=== PATIENT | female | born 1955 | race Caucasian/White ===

== ENCOUNTER → 2023-07-10 14:47 | Outpatient (REF) | payer MEDICARE, OTHER, SELFPAY | LOC: DHCBS MAIN 14:47 | PROVIDERS: ATTENDING PHYSICIAN Internal Medicine Cardiovascular Disease; FAMILY PHYSICIAN Student in an Organized Health Care Education/Training Program | DX: I71.9 Aortic aneurysm of unspecified site, without rupture (principal); Z98.890 Other specified postprocedural states | CPT/HCPCS: 93306 ==

== ENCOUNTER 2023-08-20 09:15 | Emergency (ER) | payer MEDICARE, OTHER, SELFPAY ==
[2023-08-20 09:25] VITALS: BP 128/78
--- NOTE | 2023-08-20 10:00 | ED.MUSCINJ ---
HPI-Injury
General
Chief Complaint: Musculo-Skeletal Complaint
Source: patient
Exam Limitations: none
Time Seen by Provider: 08/20/23 09:44
Travel History
Have you had any contact with someone who has COVID-19?: No
Do you have any symptoms of coronavirus? Fever > 100 degrees, chills, cough, shortness of breath, sore throat, loss of taste or smell, muscle aches, or headache?: No
History of Present Illness-Injury
Initial Injury comments:
68-year-old female presents complaining of left knee pain starting 2 days ago getting worse. No known injury. She notes swelling with pain behind her knee. The pain is made worse with bearing weight. She has been using a knee immobilizer from a
prior injury. No fevers rash or history of gout. No other complaints
Past History
Past History
ED Past Medical History: Arrthythmia and HTN
ED Past Surgical History: Gynecological (Breast cyst removal ) and Tonsilectomy
Social History
Tobacco: Non-smoker
Alcohol: None
Drug: None
Personal:
Living: with family
Employment: Retired (from [employer])
Family History
Family History: Other (n/c)
Phy Exam
Physical Exam
Physical Exam:
General: Well-appearing female no acute respiratory distress
HEENT: Normocephalic atraumatic
MSK: Left knee with small effusion. There is fullness in the popliteal space. She is tender over the posterior joint line and slightly over the calf. Able to straight leg raise against gravity flexion beyond 90 degrees no overlying skin changes
Vascular: Left leg is warm to the touch with good color
Injury Course
Orders/Labs/Results
Orders:
Orders
08/20/23 09:59
CR Knee - Left 4 Or More View* Urgent
Comment:
Reason For Exam: pain
Venous Doppler Lwr Ext Left [US Periph Venous LOWER Ext LT] Urgent
Comment:
Reason For Exam: pain behind knee, swelling
MDM/Problems Addressed
Differential Diagnosis Includes:
Atraumatic left knee pain. Consider strain versus sprain versus DJD versus DVT. Will obtain x-rays and ultrasound
*Critical Care Note
Total Time (30-74mins, 75-104mins- exclusive of procedures): Not Applicable
Update Note
Update Note:
No DVT On ultrasound x-ray shows minimal degenerative joint disease in the medial compartment. Recommended continued use of knee immobilizer. Will recommend follow-up with either family doctor or orthopedics for further evaluation of proximal
imaging of the knee.
ED Attending Note
-
Portions of this chart may have been created with voice recognition software.� Occasional wrong word or��sound alike� substitutions may have occurred due to the inherent limitations of voice recognition software.
Discharge Plan
Departure
Patient Disposition: Home (Routine Discharge)
Date of Disposition: 08/20/23
Time of Disposition: 12:54
Patient with high blood pressure during this ER visit?: No
Discharge Problem:
Acute pain of left knee
Instructions: Muscle and Bone Pain (DC)
Prescriptions:
No Action
cetirizine [Zyrtec] 10 mg Tablet
10 mg PO DAILY PRN (Reason: SEASONAL ALLERGIES)
atorvastatin 10 mg Tablet
10 mg PO DAILY
metoprolol succinate 25 mg Tablet Extended Release 24 Hr
25 mg PO HS
losartan 50 mg Tablet
50 mg PO DAILY
sennosides [senna] 8.6 mg Tablet
8.6 mg PO BID PRN (Reason: constipation)
acetaminophen [Tylenol] 325 mg Tablet
650 mg PO Q4HPRN PRN (Reason: mild pain)
therapeutic multivitamin Tablet
1 tab PO DAILY
calcium carbonate [Tums] 300 mg (750 mg) Tablet,Chewable
300 mg PO BIDPRN PRN (Reason: gerd)
aspirin 81 mg Tablet,Delayed Release (Dr/Ec)
81 mg PO DAILY
famotidine [Pepcid] 20 mg Tablet
20 mg PO DAILY
amiodarone 200 mg tablet
200 mg PO BID Qty: 60 0RF
furosemide 40 mg tablet
40 mg PO DAILY Qty: 30 1RF
furosemide 40 mg tablet
40 mg PO DAILY Qty: 30 1RF
Referrals:
Neema Brunson MD [Family Provider] -
Activity Restrictions/Additional Instructions:
Continue with Tylenol and if needed you may use ibuprofen for pain. Use brace for support ambulating. Follow-up with your doctor as planned
Interventions
Interventions:
ED-Musculoskeletal Assessment Last Done: 08/20/23 10:15
== END 2023-08-20 13:13 | disposition home or self-care (01) ==
LOC: EMR 09:15
PROVIDERS: EMERGENCY PHYSICIAN Emergency Medicine; FAMILY PHYSICIAN Student in an Organized Health Care Education/Training Program
DX: M25.562 Pain in left knee (principal); M17.12 Unilateral primary osteoarthritis, left knee
CPT/HCPCS: 99284; 73564; 93971

== ENCOUNTER → 2023-08-21 07:26 | Outpatient (REF) | payer MEDICARE, OTHER, SELFPAY | LOC: PAVMRI 07:26 | PROVIDERS: ATTENDING PHYSICIAN Student in an Organized Health Care Education/Training Program | DX: M25.562 Pain in left knee (principal); R26.89 Other abnormalities of gait and mobility | CPT/HCPCS: 73721 ==

== ENCOUNTER → 2023-11-04 13:28 | Outpatient (REF) | payer MEDICARE, OTHER, SELFPAY | LOC: RAD 13:28 | PROVIDERS: ATTENDING PHYSICIAN Internal Medicine Cardiovascular Disease; FAMILY PHYSICIAN Student in an Organized Health Care Education/Training Program | DX: I71.9 Aortic aneurysm of unspecified site, without rupture (principal); Z98.890 Other specified postprocedural states | CPT/HCPCS: 71275; Q9967 ==

== ENCOUNTER → 2023-12-26 11:28 | Outpatient (REF) | payer MEDICARE, OTHER, SELFPAY | LOC: RAD 11:28 | PROVIDERS: ATTENDING PHYSICIAN Student in an Organized Health Care Education/Training Program | DX: M25.511 Pain in right shoulder (principal); M25.512 Pain in left shoulder | CPT/HCPCS: 73030 ==

== ENCOUNTER → 2024-02-05 09:15 | Outpatient (REF) | payer MEDICARE, OTHER, SELFPAY | LOC: PAVMRI 09:15 | PROVIDERS: ATTENDING PHYSICIAN Student in an Organized Health Care Education/Training Program | DX: M25.512 Pain in left shoulder (principal) | CPT/HCPCS: 73221 ==

== ENCOUNTER → 2024-05-31 15:45 | Outpatient (REF) | payer MEDICARE, OTHER, SELFPAY | LOC: RAD 15:45 | PROVIDERS: ATTENDING PHYSICIAN Internal Medicine Gastroenterology; FAMILY PHYSICIAN Student in an Organized Health Care Education/Training Program | DX: R10.32 Left lower quadrant pain (principal) | CPT/HCPCS: 36415; 74177; 82565; 84520; Q9967 ==

== ENCOUNTER → 2024-06-08 09:43 | Outpatient (REF) | payer MEDICARE, OTHER, SELFPAY | LOC: HWWDC 09:43 | PROVIDERS: ATTENDING PHYSICIAN Obstetrics & Gynecology; FAMILY PHYSICIAN Student in an Organized Health Care Education/Training Program | DX: Z12.31 Encounter for screening mammogram for malignant neoplasm of breast (principal) | CPT/HCPCS: 77063; 77067 ==

== ENCOUNTER 2024-07-28 06:18 | Day surgery (SDC) | payer MEDICARE, OTHER, SELFPAY | END 2024-07-28 09:03 | disposition home or self-care (01) | LOC: GI 06:18 | PROVIDERS: ATTENDING PHYSICIAN Internal Medicine Gastroenterology | DX: Z12.11 Encounter for screening for malignant neoplasm of colon (principal); K63.5 Polyp of colon; K57.30 Diverticulosis of large intestine without perforation or abscess without bleeding; K64.0 First degree hemorrhoids | CPT/HCPCS: 45385; 88305 ==

== ENCOUNTER 2024-07-28 13:55 | Emergency (ER) | payer MEDICARE, OTHER, SELFPAY ==
[2024-07-28 13:58] VITALS: BP 156/91
[2024-07-28 14:22] LABS: % Basophils 0.6 % (0-2); % Eosinophils 1.4 % (0-6); % Immature Granulocytes 0.2 % (0-0.5); % Monocytes 11.2 % (1.7-9.3); % Neutrophils 48.6 % (42.2-75.2); Absolute Eosinophils 0.1 10^3/uL (0-0.7); Absolute Lymphocytes 1.9 10^3/uL (1.2-3.4); Absolute Monocytes 0.6 10^3/uL (0.1-0.6); Absolute Neutrophils 2.4 10^3/uL (1.4-6.5); Hematocrit 48.3 % (37.0-47.0); Mean Corp Hgb Conc. 33.1 g/dL (33.0-37.0); Mean Corpuscular Hgb 30.6 pg (27.0-31.0); Mean Corpuscular Volume 92.4 fL (81.0-99.0); Mean Platelet Volume 11.2 fL (7.4-10.4); Nucleated Red Blood Cells % 0 %; Platelet Count 167 10^3/uL (130-400); Red Blood Cell Count 5.23 10^6/uL (4.20-5.40); Red Cell Dist. Width 11.9 % (11.5-14.5); White Blood Cell Count 4.9 10^3/uL (4.8-10.8)
[2024-07-28 14:36] LABS: ALT (SGPT) 26 U/L (0-35); AST (SGOT) 32 U/L (14-36); Albumin 4.7 g/dl (3.5-5.0); Alkaline Phosphatase 66 U/L (38-126); Blood Urea Nitrogen 14 mg/dl (7-17); Calcium 9.6 mg/dl (8.4-10.2); Carbon Dioxide 26 mmol/L (22-30); Chloride 103 mmol/L (98-107); Glucose 107 mg/dl (70-99); Potassium 3.7 mmol/L (3.5-5.1); Sodium 138 mmol/L (135-145); Total Protein 7.5 g/dl (6.3-8.2); eGFR > 60.00
[2024-07-28 14:37] LABS: PT 12.7 Sec (11.4-14.6)
[2024-07-28 14:38] LABS: APTT 26.3 Sec (23.4-35.0)
--- NOTE | 2024-07-28 16:50 | ED.GENMED ---
History of Present Illness
General
Chief Complaint: Rectal Bleeding
Time Seen by Provider: 07/28/24 16:35
History of Present Illness
History of Present Illness:
Presents to the emergency department with bleeding. She had a screening colonoscopy this morning in a.m with Dr. Munguia. She had a 4mm polyp in the sigmoid colon that was biopsied. she denies any lightheaded/chest pain/sob
Past History
Past History
ED Past Medical History: Arrthythmia and HTN
ED Past Surgical History: Gynecological (Breast cyst removal ) and Tonsilectomy
Social History
Tobacco: Non-smoker
Alcohol: None
Drug: None
Personal:
Living: with family
Employment: Retired (from [employer])
Family History
Family History: Other (n/c)
Phy Exam
Physical Exam
Physical Exam:
GENERAL APPEARANCE: NAD, well developed/ well nourished
EYES lids/conjunctiva normal
EARS/NOSE/THROAT Mucous membranes moist, uvula midline without oral pharyngeal erythema, exudate or swelling
HEAD/NECK normocephalic atraumatic, neck is supple.
RESPIRATORY respiratory effort normal, speaks in full sentences, no accessory muscle use. Lungs clear to auscultation without rhonchi, wheezes, rales
CARDIAC Regular rate and rhythm, no edema.
ABDOMINAL Soft, ND/NT. Rectal exam with trace amount of bright red blood. No palpable hemorrhoids
MUSCLES/EXTREMITIES No abnormal range of motion, no swelling.
SKIN Warm, pink and dry. No rashes
NEUROLOGICAL Speech is clear and appropriate. Normal level of consciousness. 5/5 strength in all extremities.
PSYCH Normal mood and affect. Judgement/competence is appropriate
Course
Orders/Labs/Results
Orders:
Orders
07/28/24 14:10
Type And Crossmatch [Type+Screen] Urgent
Complete Blood Count/With Diff Urgent
Comprehensive Metabolic Panel Urgent
PTT Urgent
Prothrombin Time Urgent
07/28/24 14:35
ABO2 Urgent
BBK Wristband Number:
Associate notified that ABO2 has been ordered: [id number]
Date: 07/28/24
Time: 14:35
Mental Health Therapist ID: [id number]
Abnormal Lab Results
07/28/24
14:10
Hct 48.3 H %
(37.0-47.0)
MPV 11.2 H fL
(7.4-10.4)
Monocytes % 11.2 H %
(1.7-9.3)
Glucose 107 H mg/dl
(70-99)
07/28/24 14:10
07/28/24 14:10
Vital Signs
Initial and Last Documented VS:
Initial Vital Signs
Temp Pulse Resp BP Pulse Ox
97.5 F 103 20 156/91 99
07/28/24 13:58 07/28/24 13:58 07/28/24 13:58 07/28/24 13:58 07/28/24 13:58
Last Documented Vital Signs
Temp Pulse Resp BP Pulse Ox
97.5 F 103 20 156/91 99
07/28/24 13:58 07/28/24 13:58 07/28/24 13:58 07/28/24 13:58 07/28/24 13:58
*Critical Care Note
Total Time (30-74mins, 75-104mins- exclusive of procedures): Not Applicable
ED Attending Note
ED Attending Note
ED Attending Note:
d/w GI production control scheduler Dr. Selby
patient is hemodynamically stable
hgb is 16
will admit for observation
-
Portions of this chart may have been created with voice recognition software.� Occasional wrong word or��sound alike� substitutions may have occurred due to the inherent limitations of voice recognition software.
Discharge Plan
Departure
Prescriptions:
No Action
cetirizine [Zyrtec] 10 mg Tablet
10 mg PO DAILY PRN (Reason: SEASONAL ALLERGIES)
atorvastatin 10 mg Tablet
10 mg PO DAILY
metoprolol succinate 25 mg Tablet Extended Release 24 Hr
25 mg PO HS
losartan 50 mg Tablet
50 mg PO DAILY
sennosides [senna] 8.6 mg Tablet
8.6 mg PO BID PRN (Reason: constipation)
acetaminophen [Tylenol] 325 mg Tablet
650 mg PO Q4HPRN PRN (Reason: mild pain)
therapeutic multivitamin Tablet
1 tab PO DAILY
calcium carbonate [Tums] 300 mg (750 mg) Tablet,Chewable
300 mg PO BIDPRN PRN (Reason: gerd)
aspirin 81 mg Tablet,Delayed Release (Dr/Ec)
81 mg PO DAILY
famotidine [Pepcid] 20 mg Tablet
20 mg PO DAILY
amiodarone 200 mg tablet
200 mg PO BID Qty: 60 0RF
furosemide 40 mg tablet
40 mg PO DAILY Qty: 30 1RF
furosemide 40 mg tablet
40 mg PO DAILY Qty: 30 1RF
Interventions
Interventions:
*Risk Screen - Suicide Last Done: 07/28/24 13:58
Discharge Date and Time
Print Language: ARMENIAN
[2024-07-28 17:22] VITALS: BP 183/93; BMI 21.9
--- NOTE | 2024-07-28 17:22 | W.PN.UPDATE ---
Update Note
Progress Note Update
Patient seen and examined. I did the colonoscopy earlier today she did have a 4 mm polyp that was on a little bit of a possible stalk perhaps this was she was bleeding from versus hemorrhoids. She states her first bowel movement was just blood
when she wiped. The second 1 was about a fistful with clots but primarily when she wipes. She had a third bowel movement here in the emergency room which had less blood. Her hemoglobin here was 16. Dr. Pelaez and I discussed with the patient
options of going home and staying on a clear liquid diet, if no bleeding overnight can advance to regular diet versus staying in the observation unit. Patient opted to go home with a clear liquid diet and will come back if she has any chest pain,
shortness of breath, lightheadedness, dizziness, ongoing bleeding. I will follow-up with her tomorrow as well. Dr. Pelaez discussed with the ER doctor and I discussed with Dr. Jhaveri on-call.
--- NOTE | 2024-07-28 17:23 | ED.ADDNOTE ---
ED Addendum
ED Addendum
ED Addendum Note:
Patient was seen by her metal temperer Dr Munguia as well as the hospitalist Dr Franklin. She prefers to go home and does not want be admitted for observation. They are in agreeance with this plan. She states she will return immediately with
worsening symptoms.
--- NOTE | 2024-07-28 17:40 | EDRN ---
Reviewed discharge instructions with patient. Verbalized understanding. Ambulated with steady gait to the lobby.
[2024-07-28 17:43] VITALS: BP 183/93
== END 2024-07-28 17:40 | disposition home or self-care (01) ==
LOC: EMR 13:55
PROVIDERS: Emergency Medicine; EMERGENCY PHYSICIAN Emergency Medicine; FAMILY PHYSICIAN Student in an Organized Health Care Education/Training Program
DX: K62.5 Hemorrhage of anus and rectum (principal); I10 Essential (primary) hypertension
CPT/HCPCS: 99283; 80053; 85025; 85610; 85730; 86850; 86900; 86901

== ENCOUNTER → 2024-08-31 10:56 | Outpatient (REF) | payer MEDICARE, OTHER, SELFPAY | LOC: RCS 10:56 | PROVIDERS: ATTENDING PHYSICIAN Internal Medicine Cardiovascular Disease | DX: I71.9 Aortic aneurysm of unspecified site, without rupture (principal); Z98.890 Other specified postprocedural states | CPT/HCPCS: 93307; Q9957 ==

== ENCOUNTER → 2025-01-19 08:21 | Outpatient (REF) | payer MEDICARE, OTHER, SELFPAY | LOC: RAD 08:21 | PROVIDERS: ATTENDING PHYSICIAN Obstetrics & Gynecology; FAMILY PHYSICIAN Student in an Organized Health Care Education/Training Program | DX: Z78.0 Asymptomatic menopausal state (principal) | CPT/HCPCS: 77080 ==

== ENCOUNTER → 2025-02-14 12:35 | Outpatient (REF) | payer MEDICARE, OTHER, SELFPAY | LOC: WDC 12:35 | PROVIDERS: ATTENDING PHYSICIAN Student in an Organized Health Care Education/Training Program | DX: R92.333 Mammographic heterogeneous density, bilateral breasts (principal) | CPT/HCPCS: 76641 ==

== ENCOUNTER → 2025-02-15 15:02 | Outpatient (REF) | payer MEDICARE, OTHER, SELFPAY | LOC: RAD 15:02 | PROVIDERS: ATTENDING PHYSICIAN Internal Medicine Cardiovascular Disease; FAMILY PHYSICIAN Student in an Organized Health Care Education/Training Program | DX: Z98.890 Other specified postprocedural states (principal) | CPT/HCPCS: 71275; Q9967 ==

== ENCOUNTER → 2025-05-10 16:28 | Outpatient (REF) | payer MEDICARE, OTHER, SELFPAY | LOC: WDC 16:28 | PROVIDERS: ATTENDING PHYSICIAN Obstetrics & Gynecology; FAMILY PHYSICIAN Student in an Organized Health Care Education/Training Program | DX: Z12.31 Encounter for screening mammogram for malignant neoplasm of breast (principal) | CPT/HCPCS: 77063; 77067 ==